=== PATIENT | male | born 1995 | race Caucasian/White ===

== ENCOUNTER 2023-04-25 23:20 | Emergency (ER) | payer OTHER ==
[~2023-04-25] VITALS: Ht 177.8 cm; Wt 94.5 kg
[2023-04-25 23:56] VITALS: TEMP 98.6
[2023-04-26] MEDS ORDERED: DULO20CA71 PO (00:03)
[2023-04-26] MEDS ORDERED: IBUPROFEN 800 MG TABLET PO ONE (00:15)
[2023-04-26] MEDS ORDERED: BACITRACIN ZINC/POLYMYXIN B 14.2 GM OINTMENT TP ONE (00:30)
[2023-04-26 06:43] VITALS: BP 135/87; PULSE 89; RESP 16
== END 2023-04-26 07:20 | disposition home or self-care (01) ==
LOC: EMS 23:27
DX: S02.2XXA Fracture of nasal bones, initial encounter for closed fracture (principal); S01.21XA Laceration without foreign body of nose, initial encounter; F41.9 Anxiety disorder, unspecified; F32.A Depression, unspecified; Y04.0XXA Assault by unarmed brawl or fight, initial encounter; Y93.89 Activity, other specified; Y92.89 Other specified places as the place of occurrence of the external cause; Y99.8 Other external cause status
CPT/HCPCS: 12011; 70450; 70486; 71045; 72125; 99284